=== PATIENT | male | born 2000 | race Two or more races ===

== ENCOUNTER → 2023-12-10 | Emergency (ER) | payer OTHER ==
[~2023-12-10] VITALS: Ht 182.9 cm; Wt 102.1 kg
[~2023-12-10] MED LIST: PROPOFOL 10,000 MCG/ML VIAL IV PUSH STA
== END | disposition left against medical advice (07) ==
LOC: ER 14:45
DX: S43.085A Other dislocation of left shoulder joint, initial encounter (principal); Y93.18 Activity, surfing, windsurfing and boogie boarding; Y93.89 Activity, other specified; Y92.832 Beach as the place of occurrence of the external cause